=== PATIENT | male | born 1955 | race Caucasian/White ===

== ENCOUNTER → 2016-10-09 | Outpatient (CLI) | payer MEDICAID ==
[~2016-10-09] MED LIST: ALDACTONE 25MG25 M1 PO; ALEVE 220MG220 MG PO; ASPIRIN 32325 MG/TA1 PO; ATIVAN 1MG T1 MG/TAB PO; COLACE 100100 MG/CAP PO; COREG 3.123.125 MG/T PO; DALIRESP500 MCG PO; DIGITEK0.125 MG PO; DILANTIN 100MG100 MG PO; FLOMAX 0.40.4 MG/CAP; HYTRIN 1MG C1 MG/CAP PO; KEPPRA1000 MG PO; LANOXIN 0.120.125 MG PO; LASIX 20MG TABL20 MG PO; NITRO-BID22 TOP; NITROSTAT0.4 MG/TAB SL; NORCO 325 MG-51 TAB PO; PRILOSEC 20MG20 MG PO; PYRIDIUM200 M1 PO; RT SPIRIVA18 MCG IH; ULTRAM 50MG TAB50 MG PO; VENTOLIN0.09 MG IH; ZESTRIL 5MG5 MG PO; ZOCOR 20MG20 MG PO; ZOLOFT 50MG50 MG PO
== END ==
LOC: COL.RAD 08:15
DX: Z53.9 Procedure and treatment not carried out, unspecified reason (principal)